=== PATIENT | male | born 1990 | race Caucasian/White ===

== ENCOUNTER 2017-10-12 20:45 | Emergency (ER) | payer BC ==
[2017-10-12] MEDS ORDERED: Reglan 10 MG/2 ML IV ONE (21:13)
[2017-10-12] MEDS ORDERED: TORAdol 30 mg Injection IV ONE (21:13)
[2017-10-12] MEDS ORDERED: Sodium Chloride 0.9% 1000 ML 1,000 ML IV SCH (21:15)
--- NOTE | 2017-10-12 21:16 | ERPHSYRPT ---
- History of Present Illness Time Seen by Provider: 10/12/17 21:00 Source: patient Exam Limitations: clinical condition Patient Subjective Stated Complaint: was treated yesterday at [facility] for sinus infection and now he has awful headache wont go away Triage Nursing Assessment: pt alert and orientedx3, gait is steady, able toambulate by self, lung sounds celar, patient pupils perrla2, skin WNL, pain and tednerness to right side of head and back Physician History: PATIENT WITH A HISTORY OF HEADACHES SINCE A TEENAGER, TREATED FOR LEFT MAXILLARY SINUSITIS WITH AMOXICILLIN IN [facility]ALK IN CLINIC NOW COMPLAINS OF FRONTAL AND GENERALIZED HEADACHE SINCE THIS MORNING. RATES HIS PAIN SCALE A 8 /10, DENIES NAUSEA, PHOTOPHOBIA, NECK STIFFNESS OR FEVER. Timing/Duration: today Quality: throbbing Head Pain Location: frontal, occipital Severity of Pain-Max: moderate Severity of Pain-Current: moderate Recent Head Trauma: occasional headaches Associated Symptoms: sinus infection Previous symptoms: same symptoms as today Allergies/Adverse Reactions: No Known Drug Allergies Allergy (Verified 10/12/17 20:53) Hx Tetanus, Diphtheria Vaccination/Date Given: Yes Hx Influenza Vaccination/Date Given: No Hx Pneumococcal Vaccination/Date Given: No Immunizations Up to Date: Yes - Review of Systems Constitutional: No Fever, No Chills Eyes: No Symptoms Ears, Nose, & Throat: No Symptoms, Other (LEFT FACIAL PAIN) Respiratory: No Cough, No Dyspnea Cardiac: No Chest Pain, No Edema, No Syncope Abdominal/Gastrointestinal: No Abdominal Pain, No Nausea, No Vomiting, No Diarrhea Genitourinary Symptoms: No Dysuria Musculoskeletal: No Back Pain, No Neck Pain Skin: No Rash Neurological: Headache, No Dizziness, No Focal Weakness, No Sensory Changes Psychological: No Symptoms Endocrine: No Symptoms Hematologic/Lymphatic: Easy Bruising All Other Systems: Reviewed and Negative - Past Medical History Pertinent Past Medical History: No - Past Surgical History Past Surgical History: No - Social History Smoking Status: Current every day smoker Drug Use: none - Nursing Vital Signs Nursing Vital Signs: Initial Vital Signs Temperature 97.7 F 10/12/17 20:46 Pulse Rate 56 L 10/12/17 20:46 Respiratory Rate 16 10/12/17 20:46 Blood Pressure 153/104 10/12/17 20:46 O2 Sat by Pulse Oximetry 97 10/12/17 20:46 Pain Scale Pain Intensity 10 - Physical Exam General Appearance: no apparent distress, other (APPEARS IN NO DISTRESS) Eye Exam: PERRL/EOMI Ears, Nose, Throat Exam: normal ENT inspection, pharynx normal (THERE IS WIDESPREAD DENTAL CARIES), moist mucous membranes, other (THERE IS NO PERCUSSION TENDERNESS) Neck Exam: normal inspection, supple, full range of motion, No meningismus Respiratory Exam: normal breath sounds, lungs clear Cardiovascular Exam: regular rate/rhythm, normal heart sounds Gastrointestinal/Abdominal Exam: soft, No tenderness, No distention Back Exam: normal inspection, normal range of motion Mental Status Exam: alert, oriented x 3, cooperative machinist set up Exam: normal speech, PERRL, No facial droop Coordination/Gait Exam: normal cerebellar function Motor/Sensory Exam: no motor deficit, no sensory deficit DTR Exam: bicep (R): 2+, bicep (L): 2+, tricep (R): 2+, tricep (L): 2+, knee (R) : 2+, knee (L): 2+, ankle (R): 2+, ankle (L): 2+ Skin Exam: normal color, warm, dry, No rash SpO2 Interpretation: normal SpO2: 97 Oxygen Delivery: Room Air - CT Exams Head CT Interpretation: Other (NO ACUTE INTRACRANIAL ABNORMALITY) Ordered Tests: Active Orders 24 hr Category Date Time Status IV Insertion STAT Care 10/12/17 21:13 Active HEAD WITHOUT CONTRAST [CT] Stat Exams 10/12/17 21:13 Taken Medication Summary Generic Name Dose Route Start Last Admin Trade Name Freq PRN Reason Stop Dose Admin Sodium Chloride 1,000 mls @ 250 mls/hr 10/12/17 21:15 10/12/17 21:35 Sodium Chloride 0.9% 1000 Ml IV 11/11/17 21:14 250 mls/hr .Q4H MAGGIE Administration Tramadol HCl 50 mg 10/12/17 22:57 Ultram 50 Mg PO 11/11/17 22:56 QID PRN PRN PAIN Discontinued Medications Generic Name Dose Route Start Last Admin Trade Name Freq PRN Reason Stop Dose Admin Ketorolac Tromethamine 30 mg 10/12/17 21:13 10/12/17 21:35 Toradol 30 Mg Injection IV 10/12/17 21:14 30 mg STAT ONE Administration Ketorolac Tromethamine Confirm 10/12/17 21:24 Toradol 30 Mg Injection Administered 10/12/17 21:25 Dose 30 mg .ROUTE .STK-MED ONE Metoclopramide HCl 10 mg 10/12/17 21:13 10/12/17 21:35 Reglan 10 Mg/2 Ml IV 10/12/17 21:14 10 mg STAT ONE Administration Metoclopramide HCl Confirm 10/12/17 21:24 Reglan 10 Mg/2 Ml Administered 10/12/17 21:25 Dose 10 mg .ROUTE .STK-MED ONE Tramadol HCl 50 mg 10/12/17 22:57 Ultram 50 Mg PO 10/12/17 22:58 STAT ONE - Progress Progress: improved, re-examined Progress Note: 10/12/17 22:08 IV NORMAL SALINE AT 500ML/HR, REGLAN 10MG, TORADOL 30MG IV, ULTRAM 50MG ORALLY 10/12/17 22:59 Blood Culture(s) Obtained: No Counseled pt/family regarding: lab results, diagnosis, need for follow-up, rad results - Departure Time of Disposition: 23:00 Departure Disposition: Home Clinical Impression: DENTAL CARIES, ACUTE CEPHALGIA Condition: Stable Critical Care Time: No Referrals: ARNOL DIAZ MD [Primary Care Provider] - Additional Instructions: CONTINUE ANTIBIOTIC DIRECTED. ULTRAM 50MG EVERY 6 HOURS NEEDED. CONSULT A DENTIST AND A PRIMARY CARE PROVIDER FOR FOLLOWUP. Prescriptions: Tramadol HCl 50 mg [Ultram 50 mg] 50 mg PO Q6H PRN PRN #12 tablet PRN Reason: Pain
[2017-10-12] MEDS ORDERED: Reglan 10 MG/2 ML ONE (21:24)
[2017-10-12] MEDS ORDERED: Sodium Chloride 0.9% 1000 ML 1,000 ML ONE (21:24)
[2017-10-12] MEDS ORDERED: TORAdol 30 mg Injection ONE (21:24)
[2017-10-12] MEDS ORDERED: ULTRAM 50 MG PO PRN (22:57)
[2017-10-12] MEDS ORDERED: ULTRAM 50 MG PO ONE (22:57)
[2017-10-12] MEDS ORDERED: ULTRAM 50 MG ONE (23:00)
[2017-10-12 23:08] VITALS: BP 111/86; PULSE 60; O2SAT 98
--- NOTE | 2017-10-13 15:17 | XRAY ---
Exam: CT of the head without IV contrast from 10/12/2017. CTDI: 66.37 Comparison: None. Indication: 27-year-old male with right temporal headache radiating down to back of neck, emesis 1. Technique: Non-IV contrast axial images were obtained through the brain. Reconstructed coronal and sagittal images were created and reviewed. The ventricles are of normal size. No focal mass effect or midline shift is seen. I see no evidence of acute intracranial bleed or subdural or epidural hematoma. Espinal matter-white matter interfaces appear unremarkable. No low attenuation brain lesion is seen to suggest a territorial infarct or focal edema. Structures of the posterior fossa appear unremarkable. The cortical sulci and basilar cisterns appear unremarkable. The calvarium of the skull appears intact. The visualized paranasal sinuses are clear. The mastoid air cells are adequately aerated. Some cerumen is seen within both external auditory canals. The orbits appear grossly unremarkable. The scalp soft tissues appear unremarkable. Impression: 1. No acute intracranial bleed or other acute intracranial abnormality is seen.
== END 2017-10-12 23:15 | disposition home or self-care (01) ==
LOC: ED 20:45
DX: R51 Headache (principal); K02.9 Dental caries, unspecified
CPT/HCPCS: 70450; 96360; 96374; 96375; 99284; J1885; A9270-GY